=== PATIENT | male | born 1965 | race Caucasian/White ===

== ENCOUNTER 2017-11-13 11:09 | Day surgery (SDC) | payer OTHER ==
[~2017-11-13 11:09] MED LIST: CEFAZOLIN 1 GM INJ; PROPOFOL 200 MG INJ
[2017-11-13] MEDS ORDERED: CEFAZOLIN 2 GM/50 ML (PMX) 50 ML IVPB (13:00)
[2017-11-13] MEDS ORDERED: SOD CHLORIDE 0.9% 1,000 ML IV (13:00)
[2017-11-13] MEDS ORDERED: MEPERIDINE 25 MG INJ IV (14:30)
[2017-11-13] MEDS ORDERED: HYDROmorphONE 1 MG/5 ML IV SYRINGE IV ×2 (14:30)
[2017-11-13] MEDS ORDERED: DIPHENHYDRAMINE 50 MG INJ IV (14:30)
[2017-11-13] MEDS ORDERED: hydrALAzine 20 MG INJ IV (14:30)
[2017-11-13] MEDS ORDERED: LABETALOL HCL 20MG INJ IV (14:30)
[2017-11-13] MEDS ORDERED: ROCURONIUM 50 MG INJ (14:36)
[2017-11-13] MEDS ORDERED: MIDAZOLAM 1 MG/ML 2 ML INJ (14:36)
[2017-11-13] MEDS ORDERED: KETOROLAC 30 MG INJ (14:36)
[2017-11-13] MEDS ORDERED: ROPIVACAINE 0.2% 20 ML VIAL (14:36)
[2017-11-13] MEDS ORDERED: ONDANSETRON 4 MG INJ (14:36)
[2017-11-13] MEDS ORDERED: METOCLOPRAMIDE 10 MG INJ (14:36)
[2017-11-13] MEDS: POLYMYXIN/BACITRACIN 1L IRRIG IRR (15:00)
[2017-11-13] MEDS ORDERED: BUPIVACAINE 0.25% (MPF) 30 ML INJ (15:34)
[2017-11-13] MEDS: HYDROmorphONE 1 MG/5 ML IV SYRINGE IV (16:10)
[2017-11-13] MEDS: ONDANSETRON 4 MG INJ IV (16:10)
[2017-11-13] MEDS: HYDROCODONE/APAP (5/325) TAB PO (16:11)
== END 2017-11-13 17:25 | disposition home or self-care (01) ==
LOC: SDS 11:09
DX: K40.30 Unilateral inguinal hernia, with obstruction, without gangrene, not specified as recurrent (principal)
CPT/HCPCS: 49507